=== PATIENT | female | born 1930 | race Caucasian/White ===

== ENCOUNTER 2019-03-28 07:25 | Emergency (ER) | payer MEDICARE ==
[~2019-03-28] VITALS: Ht 167.6 cm; Wt 65.7 kg
--- NOTE | 2019-03-28 08:00 | PHYS DOC ---
Past History Past Medical History: Dementia, High Cholesterol, Hypertension, Other Alcohol Use: None Drug Use: None Adult General Chief Complaint Chief Complaint: MECHANICAL FALL HPI HPI 88-year-old female presents after fall 2 days ago. She has been complaining about her right rib cage. The pain seems to be increasing and family became concerned. She has been able to walk. She is getting around okay. She has dementia at baseline. She tells me that the only thing that hurts is her right side. She had a mechanical fall where she lost her balance and fell onto her right side. Patient normally uses a walker. She denies fever or chills. She is not having difficulty breathing. Review of Systems Review of Systems Constitutional: Denies fever or chills [] Eyes: Denies change in visual acuity, redness, or eye pain [] HENT: Denies nasal congestion or sore throat [] Respiratory: Denies cough or shortness of breath [] Cardiovascular: No additional information not addressed in HPI [] GI: Denies abdominal pain, nausea, vomiting, bloody stools or diarrhea [] : Denies dysuria or hematuria [] Musculoskeletal: Right rib pain[] Integument: Denies rash or skin lesions [] Neurologic: Denies headache, focal weakness or sensory changes [] Endocrine: Denies polyuria or polydipsia [] All other systems were reviewed and found to be within normal limits, except as documented in this note. Allergies Allergies Allergies Coded Allergies Type Severity Reaction Last Updated Verified No Known Drug Allergies 03/28/19 No Physical Exam Physical Exam Constitutional: Well developed, well nourished, no acute distress, non-toxic appearance. [] HENT: Normocephalic, atraumatic, bilateral external ears normal, oropharynx moist, no oral exudates, nose normal. [] Eyes: PERRLA, EOMI, conjunctiva normal, no discharge. [] Neck: Normal range of motion, no tenderness, supple, no stridor. [] Cardiovascular:Heart rate regular rhythm, no murmur [] Lungs & Thorax: Bilateral breath sounds clear to auscultation. Tenderness over the right lateral mid and lower ribs. No obvious deformity or ecchymosis. [] Abdomen: Bowel sounds normal, soft, no tenderness, no masses, no pulsatile masses. [] Skin: Warm, dry, no erythema, no rash. [] Back: No tenderness, no CVA tenderness. [] Extremities: No tenderness, no cyanosis, no clubbing, ROM intact, no edema. [] Neurologic: Alert and oriented X 3, normal motor function, normal sensory function, no focal deficits noted. [] Psychologic: Affect normal, judgement normal, mood normal. [] Current Patient Data Vital Signs Vital Signs Date Time Temp Pulse Resp B/P (MAP) Pulse Ox O2 Delivery O2 Flow Rate FiO2 03/28/19 07:25 98.3 61 14 99 Room Air EKG EKG [] Radiology/Procedures Radiology/Procedures [] Course & Med Decision Making Course & Med Decision Making Pertinent Labs and Imaging studies reviewed. (See chart for details) The patient's x-ray is significant for broken ribs. I count 3 minimally displaced ribs. I will give the patient 1 [place] 5/325 in the ED followed by a prescription for the same. She is stable for discharge at this time. [] Dragon Disclaimer Dragon Disclaimer This electronic medical record was generated, in whole or in part, using a voice recognition dictation system. Departure Departure: Impression: Primary Impression: Ribs, multiple fractures Disposition: HOME, SELF-CARE Condition: STABLE Referrals: GERMAN MAY MD (PCP) Patient Instructions: Rib Fracture, [id number] Scripts Hydrocodone Bit/Acetaminophen (NORCO 5-325 TABLET) 1 Each Tablet 1 TAB PO PRN Q6HRS PRN for PAIN, #30 TAB 0 Refills Prov: KRISTEN PEOPLES DO 03/28/19 Problem Qualifiers Primary Impression: Ribs, multiple fractures Encounter type: initial encounter Fracture type: closed Laterality: right Qualified Codes: S22.41XA - Multiple fractures of ribs, right side, initial encounter for closed fracture KRISTEN PEOPLES DO Mar 28, 2019 08:00
--- NOTE | 2019-03-28 08:26 | RAD ---
RIBS RIGHT AND PA CHEST History: Fall 2 days ago Comparison: February 18, 2016 Findings: Single view of the chest and 3 additional views of the right ribs are submitted. There is again mild thoracic dextroscoliosis and severe lumbar levoscoliosis. There is some atherosclerotic calcification near aortic arch. There is no pneumothorax, significant pleural fluid, or lobar consolidation. Heart size is stable. There is again calcified granuloma of AP window. There are minimally displaced right lateral seventh and eighth rib fractures. Impression: 1. There are minimally displaced right lateral seventh and eighth rib fractures, no significant pneumothorax identified by radiograph. 2. There is S-shaped scoliosis of the thoracolumbar spine. Electronically signed by: Matthew Sky MD (03/28/2019 8:23 AM) [facility]
[2019-03-28 08:33] VITALS: BP 166/84
[2019-03-28] MEDS ORDERED: HYDR-3165 PO (08:46)
[2019-03-28] MEDS ORDERED: HYDROcodone/APAP 5/325MG 1 TAB TABLET PO ONE (09:00)
== END 2019-03-28 08:55 | disposition home or self-care (01) ==
LOC: ER 07:25
DX: S22.41XA Multiple fractures of ribs, right side, initial encounter for closed fracture (principal); F03.90 Unspecified dementia, unspecified severity, without behavioral disturbance, psychotic disturbance, mood disturbance, and anxiety; E78.00 Pure hypercholesterolemia, unspecified; I10 Essential (primary) hypertension; W18.39XA Other fall on same level, initial encounter; Y93.89 Activity, other specified; Y92.89 Other specified places as the place of occurrence of the external cause; Y99.8 Other external cause status
CPT/HCPCS: 71101; 99284

== ENCOUNTER 2019-07-07 11:31 | Emergency (ER) | payer MEDICARE ==
[~2019-07-07] VITALS: Ht 167.6 cm; Wt 65.7 kg
[~2019-07-07 11:31] MED LIST: HYDR-3165 PO
[2019-07-07 12:13] LABS: BASO % 1 % (0-3); EOS % 1 % (0-3); HEMATOCRIT 41.5 % (36.0-47.0); HEMOGLOBIN 13.5 g/dL (12.0-15.5); LYMPH # 0.9 x10^3/uL (1.0-4.8); LYMPH % 14 % (24-48); MEAN CORPUSCULAR HEMOGLOBIN 32 pg (25-35); MEAN CORPUSCULAR HGB CONC 33 g/dL (31-37); MEAN CORPUSCULAR VOLUME 97 fL (79-100); MONO # 0.6 x10^3/uL (0.0-1.1); MONO % 10 % (0-9); NEUT # 4.7 x10^3uL (1.8-7.7); NEUT % 75 % (31-73); PLATELET COUNT 206 x10^3/uL (140-400); RED BLOOD COUNT 4.27 x10^6/uL (3.50-5.40); RED CELL DISTRIBUTION WIDTH 14.7 % (11.5-14.5); WHITE BLOOD COUNT 6.2 x10^3/uL (4.0-11.0)
[2019-07-07 12:19] LABS: ALBUMIN 3.2 g/dL (3.4-5.0); ALBUMIN/GLOBULIN RATIO 0.9 (1.0-1.7); CALCIUM 9.5 mg/dL (8.5-10.1); CREATININE 0.9 mg/dL (0.6-1.0); POTASSIUM 3.8 mmol/L (3.5-5.1); TOTAL BILIRUBIN 0.4 mg/dL (0.2-1.0); TOTAL PROTEIN 6.6 g/dL (6.4-8.2)
[2019-07-07 12:34] LABS: BACTERIA,URINE FEW /HPF (0-FEW); BILIRUBIN,URINE NEG (NEG); CLARITY,URINE HAZY; COLOR,URINE YELLOW; GLUCOSE,URINE NEG (NEG); NITRITE,URINE NEG (NEG); SQUAMOUS EPITHELIAL CELL,UR FEW /LPF; UROBILINOGEN,URINE 0.2 mg/dL (0.2 mg/dL)
--- NOTE | 2019-07-07 12:40 | RAD ---
Examination: CT HEAD WO CONTRAST History: Altered mental status, head injury Comparison/Correlation: None Findings: Axial images of the head were obtained without contrast. Advanced atrophy and chronic appearing changes bilaterally is noted. Ventricular cardiomegaly which is likely related to volume loss is noted. Bilateral anterior limb internal lacunar infarcts are present and probably old. No depressed fracture. Opacification of the left maxillary sinus is noted. Opacification of right ethmoid air cells noted. No depressed fracture. Impression: Atrophy and chronic appearing changes. Old lacunar infarcts. No intracranial hemorrhage. Ventriculomegaly which probably is due to volume loss. Correlate for possibility of normal pressure hydrocephalus. Chronic paranasal sinusitis. PQRS Compliance Statement: One or more of the following individualized dose reduction techniques were utilized for this examination: 1. Automated exposure control 2. Adjustment of the mA and/or kV according to patient size 3. Use of iterative reconstruction technique Electronically signed by: Devaughn Hernandez MD (07/07/2019 12:37 PM) [facility]
[2019-07-07 12:41] VITALS: BP 131/63
[2019-07-07] MEDS ORDERED: DONE10TA61 PO (12:41)
--- NOTE | 2019-07-07 12:41 | RAD ---
EXAM: CHEST 1 VIEW History: Weakness COMPARISON: None available. TECHNIQUE: Single portable radiograph of the chest FINDINGS: The cardiac silhouette is unremarkable. The lungs are clear bilaterally. The costophrenic sulci are clear and well demarcated. IMPRESSION: No radiographic evidence of an acute cardiopulmonary process. Electronically signed by: Benton Parra MD (07/07/2019 12:38 PM) [id number]
[2019-07-07] MEDS ORDERED: MEMA10TA PO (12:42)
[2019-07-07] MEDS ORDERED: LEVO75TA5 PO (12:43)
[2019-07-07] MEDS ORDERED: FLUT16SP21 NS (12:44)
[2019-07-07] MEDS ORDERED: PROP40TA PO (12:44)
[2019-07-07] MEDS ORDERED: OXYB5TAB10 PO (12:45)
[2019-07-07] MEDS ORDERED: PANT40TA5 PO (12:46)
[2019-07-07] MEDS ORDERED: LISI-338 PO (12:47)
[2019-07-07] MEDS ORDERED: LORA10CA PO (12:47)
[2019-07-07] MEDS ORDERED: DOCU-109 PO (12:48)
--- NOTE | 2019-07-07 13:06 | PHYS DOC ---
Past History Past Medical History: Dementia, High Cholesterol, Hypertension, Hypothyroid, Other Additional Past Medical Histor: parkinsons, osteoarthritis,vertigo, Past Surgical History: No Surgical History Alcohol Use: None Drug Use: None Adult General Chief Complaint Chief Complaint: NAUSEA/VOMITING/DIARRHEA HPI HPI Patient is a 88 yo f assisted living resident fell yesterday unknown circumstance since then has been nauseous and not herself watned to get checked for concussion Review of Systems Review of Systems william by dementia pt denies any complaints at all though Allergies Allergies Allergies Coded Allergies Type Severity Reaction Last Updated Verified No Known Drug Allergies 03/28/19 No Physical Exam Physical Exam Constitutional: Well developed, well nourished, no acute distress, non-toxic appearance. [] HENT: Normocephalic, atraumatic, bilateral external ears normal, oropharynx m oist, no oral exudates, nose normal. [] Eyes: PERRLA, EOMI, conjunctiva normal, no discharge. [] Neck: Normal range of motion, no tenderness, supple, no stridor. [] Cardiovascular:Heart rate regular rhythm, no murmur [] Lungs & Thorax: Bilateral breath sounds clear to auscultation [] Abdomen: Bowel sounds normal, soft, no tenderness, no masses, no pulsatile masses. [] Skin: Warm, dry, no erythema, no rash. [] Back: No tenderness, no CVA tenderness. [] Extremities: No tenderness, no cyanosis, no clubbing, ROM intact, no edema. [] Neurologic: Alert aresponsive, friendly normal motor function, normal sensory function, no focal deficits noted. [] Psychologic: Affect normal, judgement normal, mood normal. [] Current Patient Data Vital Signs Vital Signs Date Time Temp Pulse Resp B/P (MAP) Pulse Ox O2 Delivery O2 Flow Rate FiO2 07/07/19 11:35 98.0 68 16 100 Room Air 07/07/19 11:31 132/55 (80) Temperature (Fahrenheit): * 98.0 degrees F (97.6-99.5) Patient Temperature * 98.0 degrees F (97.5-99.5) Temperature Source * Oral Blood Pressure Assessment Label 132/55 * Mean 80 Blood Pressure Systolic * 132 mm Hg (100-140) Blood Pressure Diastolic * 55 mm Hg (60-100) L Pulse Rate * 68 beats per minute (60-90) Respiratory Rate * 16 breaths per minute (12-24) Oxygen Delivery Method * Room Air Bedside Pulse Oximetry * 100 % Lab Results Laboratory Tests Test 07/07/19 11:47 07/07/19 12:16 White Blood Count 6.2 x10^3/uL (4.0-11.0) Red Blood Count 4.27 x10^6/uL (3.50-5.40) Hemoglobin 13.5 g/dL (12.0-15.5) Hematocrit 41.5 % (36.0-47.0) Mean Corpuscular Volume 97 fL (79-100) Mean Corpuscular Hemoglobin 32 pg (25-35) Mean Corpuscular Hemoglobin Concent 33 g/dL (31-37) Red Cell Distribution Width 14.7 % (11.5-14.5) H Platelet Count 206 x10^3/uL (140-400) Neutrophils (%) (Auto) 75 % (31-73) H Lymphocytes (%) (Auto) 14 % (24-48) L Monocytes (%) (Auto) 10 % (0-9) H Eosinophils (%) (Auto) 1 % (0-3) Basophils (%) (Auto) 1 % (0-3) Neutrophils # (Auto) 4.7 x10^3uL (1.8-7.7) Lymphocytes # (Auto) 0.9 x10^3/uL (1.0-4.8) L Monocytes # (Auto) 0.6 x10^3/uL (0.0-1.1) Eosinophils # (Auto) 0.0 x10^3/uL (0.0-0.7) Basophils # (Auto) 0.0 x10^3/uL (0.0-0.2) Sodium Level 143 mmol/L (136-145) Potassium Level 3.8 mmol/L (3.5-5.1) Chloride Level 105 mmol/L (98-107) Carbon Dioxide Level 28 mmol/L (21-32) Anion Gap 10 (6-14) Blood Urea Nitrogen 17 mg/dL (7-20) Creatinine 0.9 mg/dL (0.6-1.0) Estimated GFR (Cockcroft-Gault) 59.0 BUN/Creatinine Ratio 19 (6-20) Glucose Level 83 mg/dL (70-99) Calcium Level 9.5 mg/dL (8.5-10.1) Total Bilirubin 0.4 mg/dL (0.2-1.0) Aspartate Amino Transferase (AST) 15 U/L (15-37) Alanine Aminotransferase (ALT) 15 U/L (14-59) Alkaline Phosphatase 89 U/L (46-116) Troponin I Quantitative < 0.017 ng/mL (0-0.055) Total Protein 6.6 g/dL (6.4-8.2) Albumin 3.2 g/dL (3.4-5.0) L Albumin/Globulin Ratio 0.9 (1.0-1.7) L Urine Collection Type Unknown Urine Color Yellow Urine Clarity Hazy Urine pH 7.0 Urine Specific [place] 1.015 Urine Protein Neg (NEG-TRACE) Urine Glucose (UA) Neg mg/dL (NEG) Urine Ketones (Stick) Neg mg/dL (NEG) Urine Blood Trace (NEG) Urine Nitrite Neg (NEG) Urine Bilirubin Neg (NEG) Urine Urobilinogen Dipstick 0.2 mg/dL (0.2 mg/dL) Urine Leukocyte Esterase Neg (NEG) Urine RBC 3-5 /HPF (0-2) Urine WBC 1-4 /HPF (0-4) Urine Squamous Epithelial Cells Few /LPF Urine Bacteria Few /HPF (0-FEW) EKG EKG []nsr no ischemia no stemi no tachycardia intervals normal Radiology/Procedures Radiology/Procedures []COMPARISON: None available. TECHNIQUE: Single portable radiograph of the chest FINDINGS: The cardiac silhouette is unremarkable. The lungs are clear bilaterally. The costophrenic sulci are clear and well demarcated. IMPRESSION: No radiographic evidence of an acute cardiopulmonary process. Electronically signed by: Benton Parra MD (07/07/2019 12:38 PM) [id number] DICTATED AND SIGNED BY: BENTON PARRA MD DATE: 07/07/19 1238 CC: GERMAN MAY MD; RAFA FOURNIER MD ~ Impressions: Impression: Atrophy and chronic appearing changes. Old lacunar infarcts. No intracranial hemorrhage. Ventriculomegaly which probably is due to volume loss. Correlate for possibility of normal pressure hydrocephalus. Chronic paranasal sinusitis. PQRS Compliance Statement: One or more of the following individualized dose reduction techniques were utilized for this examination: 1. Automated exposure control 2. Adjustment of the mA and/or kV according to patient size 3. Use of iterative reconstruction technique Electronically signed by: Devaughn Hernandez MD (07/07/2019 12:37 PM) [facility] Course & Med Decision Making Course & Med Decision Making Pertinent Labs and Imaging studies reviewed. (See chart for details) []89 yo f dementia no blood thinners p/w nausea following closed head injury pool including head ct, cxr, ekg, labs unremarkable pt reassured likely mild concussion reassurance provided no sinus symptoms by history Dragon Disclaimer Dragon Disclaimer This electronic medical record was generated, in whole or in part, using a voice recognition dictation system. Departure Departure: Impression: Primary Impression: Head injury Disposition: 01 HOME, SELF-CARE Condition: STABLE Patient Instructions: Head Injury, Adult, [id number] RAFA FOURNIER MD Jul 07, 2019 13:05
--- NOTE | 2019-07-07 14:35 | EKG ---
[address] [address] Test Date: 2019-07-07 Test Time: 12:35:13 Pat Name: GRACIE TORREZ Department: Room: Gender: F Psychiatric Clinician: : [id number] Requested By: RAFA FOURNIER Order Number: [id number] Reading MD: Ubaldo Bradford MD Measurements Intervals [place] Rate: 63 P: NE: QRS: 12 QRSD: 88 T: 26 QT: 398 QTc: 410 Interpretive Statements SR NON-SPECIFIC ST/T CHANGES Electronically Signed On 07-14-2019 10:30:18 CDT by Ubaldo Bradford MD
== END 2019-07-07 13:00 | disposition home or self-care (01) ==
LOC: ER 11:31
DX: S09.8XXA Other specified injuries of head, initial encounter (principal); F03.90 Unspecified dementia, unspecified severity, without behavioral disturbance, psychotic disturbance, mood disturbance, and anxiety; E78.00 Pure hypercholesterolemia, unspecified; I10 Essential (primary) hypertension; E03.9 Hypothyroidism, unspecified; M19.90 Unspecified osteoarthritis, unspecified site; G20 Parkinson's disease; F02.80 Dementia in other diseases classified elsewhere, unspecified severity, without behavioral disturbance, psychotic disturbance, mood disturbance, and anxiety; W18.39XA Other fall on same level, initial encounter; Y93.89 Activity, other specified; Y92.89 Other specified places as the place of occurrence of the external cause; Y99.8 Other external cause status
CPT/HCPCS: 36415; 70450; 71045; 80053; 81001; 84484; 85025; 93005; 99285